=== PATIENT | male | born 1985 | race Caucasian/White ===

== ENCOUNTER 2016-10-08 15:42 | Emergency (ER) | payer BC ==
--- NOTE | 2016-10-08 16:04 | ER Document Report ---
HPI - HPI Patient complains to provider of: cut right wrist Onset: This morning Onset/Duration: Sudden Pain Level: 3 Context: 31 yo male cut right dorsal wrist with hoe while wrestling a snake. Hurts to move the wrist, worried he cut a tendon. Tetanus not current. Associated Symptoms: None Exacerbated by: Movement Relieved by: Denies Similar symptoms previously: No Recently seen / treated by doctor: No - ROS ROS below otherwise negative: Yes Systems Reviewed and Negative: Yes All other systems reviewed and negative - DERM Skin Color: Normal Past Medical History - General Information source: Patient - Social History Smoking Status: Never Smoker Frequency of alcohol use: None Drug Abuse: None Lives with: Family Family History: Reviewed & Not Pertinent Patient has suicidal ideation: No Patient has homicidal ideation: No - Medical History Medical History: Negative Renal/ Medical History: Denies: Hx Peritoneal Dialysis Surgical Hx: Negative Vertical Provider Document - CONSTITUTIONAL Agree With Documented VS: Yes Exam Limitations: No Limitations - INFECTION CONTROL TRAVEL OUTSIDE OF THE [place] IN LAST 30 DAYS: No - HEENT HEENT: Normocephalic - NECK Neck: Supple - RESPIRATORY O2 Sat by Pulse Oximetry: 97 - MUSCULOSKELETAL/EXTREMETIES Musculoskeletal/Extremeties: FROM - Against resistant pressure he is able to flex and extend and move medial and laterally with his wrist,, Tender - 2 cm full-thickness cut distal radial right forearm, - NEURO Level of Consciousness: Awake, Alert, Appropriate Motor/Sensory: negative: No Sensory Deficit Notes: States numbness to his dorsal right hand mostly over the second and third metacarpal area - DERM Integumentary: Warm, Dry, Laceration - See above Course - Vital Signs Vital signs: Temp Pulse Resp BP Pulse Ox 98.7 F 61 16 109/74 97 10/08/16 15:53 10/08/16 15:53 10/08/16 15:53 10/08/16 15:53 10/08/16 15:53 Procedures - Immobilization Right Wrist Time completed: 18:05 Pre-Proc Neuro Vasc Exam: Other - numbness dorsal right hand 2nd, 3rd MCP mostly Performed by: PCT Post-Proc Neuro Vasc Exam: Unchanged from pre-exam Alignment checked and good: Yes - ulnar gutter with some flexion of the radial side wrist per dr. valles order Discharge - Discharge Clinical Impression: rt radial distal dorsal forearm cut, dorsal right hand parathesia Condition: Good Disposition: HOME, SELF-CARE Instructions: Temporary Splint ([facility]), Splint Precautions ([facility]), Laceration Care ([facility]), Numbness or Paresthesia ([facility]), Anti-Inflammatory Medication ([facility]) Additional Instructions: keep splint on until you see dr. gamboa wound check in 48 hours in the ER to er sooner any concerns Please complete the patient satisfaction survey if you get one, and return it.. If you do not receive a survey, then you can go to the [facility] website, [email or web address] and place your comments about your very good care. Thank you very much. It was a pleasure being your medical provider today. Prescriptions: Ibuprofen [Motrin 800 mg Tablet] 800 mg PO Q8HP PRN #30 tablet PRN Reason: Referrals: CAMERON GAMBOA DO [ACTIVE STAFF] - 10/11/16
[2016-10-08] MEDS ORDERED: LIDOCAINE 1% INJ-PF (10 MG/ML) 30 ML SDV INJ ONE (16:11)
[2016-10-08] MEDS ORDERED: LIDOCAINE 4%/TETRACAINE 0.5%/EPI 0.18% 5 ML TOPICAL SOLN TOP ONE (16:11)
[2016-10-08] MEDS ORDERED: IBUPROFEN 800 MG TABLET PO ONE (16:11)
[2016-10-08] MEDS ORDERED: ONDANSETRON 4 MG TAB.RAPDIS PO ONE (16:11)
[2016-10-08] MEDS ORDERED: TRAMADOL HCL 50 MG TABLET PO ONE (16:11)
[2016-10-08] MEDS ORDERED: DIPH/PERTUSS(ACELL)/TETANUS VAC/PF 0.5 ML SYR (>=10YO) IM ONE (16:57)
[2016-10-08 18:45] VITALS: BP 121/79
== END 2016-10-08 18:45 | disposition home or self-care (01) ==
LOC: ER 15:42
PROC: 2W3CX1Z Immobilization of Right Lower Arm using Splint (ICD-10-PCS; principal; 2016-10-08)
DX: S61.511A Laceration without foreign body of right wrist, initial encounter (principal); R20.9 Unspecified disturbances of skin sensation; W27.1XXA Contact with garden tool, initial encounter; Z23 Encounter for immunization
CPT/HCPCS: 99283; 90471; 73110; 90715; 29125; S0119; J3490 ×2

== ENCOUNTER 2016-10-12 11:25 | Day surgery (SDC) | payer BC ==
[~2016-10-12 11:25] MED LIST: BACITRACIN INJ 50,000 UNIT VIAL ONE; BUPIVACAINE HCL 0.5 % INJ/PF 30 ML SDV ONE; CEFAZOLIN 2 GM/D5W RTU 2 GM/50 ML RTUPB IV PRN; GLYCOPYRROLATE INJ 0.4 MG/2 ML VIAL ONE; LIDOCAINE 2% INJ-PF (20 MG/ML) 10 ML AMPUL ONE; METOCLOPRAMIDE HCL INJ/PF 10 MG/2 ML SDV ONE; NEOSTIGMINE METHYLSULFATE 10 MG/10 ML VIAL ONE; ONDANSETRON HCL INJ/PF 4 MG/2 ML SDV ONE; ROCURONIUM BROMIDE INJ 50 MG/5 ML VIAL IV ONE; SUCCINYLCHOLINE CHLORIDE INJ 200 MG/10 ML VIAL ONE
[2016-10-12 12:19] LABS: AMORPHOUS SEDIMENT,URINE TRACE /HPF; APPEARANCE,URINE CLOUDY; BILIRUBIN,URINE NEGATIVE (NEGATIVE); GLUCOSE, URINE NEGATIVE (NEGATIVE); KETONES,URINE NEGATIVE (NEGATIVE); LEUKOCYTE ESTERASE,URINE NEGATIVE (NEGATIVE); NITRITE,URINE NEGATIVE (NEGATIVE); PROTEIN,URINE NEGATIVE (NEGATIVE); URINE SPECIFIC GRAVITY 1.017; UROBILINOGEN,URINE NEGATIVE mg/dL (<2.0)
[2016-10-12 13:00] LABS: HEMATOCRIT 42.6 % (37.9-51.0); HEMOGLOBIN 14.7 g/dL (13.5-17.0); HGB HCT DIFFERENCE 1.5; MEAN CORPUSCULAR HEMOGLOBIN 27.8 pg (27.0-33.4); MEAN CORPUSCULAR HGB CONC 34.4 g/dL (32.0-36.0); MEAN CORPUSCULAR VOLUME 81 fl (80-97); RED BLOOD COUNT 5.29 10^6/uL (4.35-5.55); RED CELL DISTRIBUTION WIDTH 13.1 % (11.5-14.0); WHITE BLOOD COUNT 7.1 10^3/uL (4.0-10.5)
[2016-10-12 13:23] LABS: ANION GAP 10 (5-19); BLOOD UREA NITROGEN 12 mg/dL (7-20); CALCIUM 9.6 mg/dL (8.4-10.2); CARBON DIOXIDE 28 mmol/L (22-30); CHLORIDE 103 mmol/L (98-107); CREATININE RESULT 0.75 mg/dL (0.52-1.25); GLUCOSE 89 mg/dL (75-110); POTASSIUM 4.3 mmol/L (3.6-5.0); SODIUM 140.5 mmol/L (137-145)
[2016-10-12] MEDS ORDERED: FENTANYL CITRATE INJ/PF 250 MCG/5 ML AMPULE ONE (13:39)
[2016-10-12] MEDS ORDERED: ACETAMINOPHEN 100 ML IV ONE (13:39)
[2016-10-12] MEDS ORDERED: MIDAZOLAM 2 MG/2 ML INJ ONE (13:39)
[2016-10-12] MEDS ORDERED: PROPOFOL INJ 200 MG/20 ML VIAL IV ONE (13:39)
[2016-10-12] MEDS ORDERED: MORPHINE SULFATE 10 MG/ML INJ ONE (13:40)
[2016-10-12] MEDS ORDERED: PROMETHAZINE HCL INJ 25 MG/1 ML VIAL IV PRN ×2 (15:05)
[2016-10-12] MEDS ORDERED: FENTANYL CITRATE INJ/PF 100 MCG/2 ML AMPUL IV PRN ×3 (15:05)
[2016-10-12] MEDS ORDERED: MORPHINE SULFATE 10 MG/ML INJ IV PRN ×2 (15:05→16:01)
[2016-10-12] MEDS ORDERED: MEPERIDINE HCL/PF INJ 25 MG/1 ML DISP.SYRIN IV PRN (15:05)
[2016-10-12] MEDS ORDERED: DIPHENHYDRAMINE HCL 50 MG/ML VIAL IV PRN (15:05)
[2016-10-12] MEDS ORDERED: OXYCODONE-ACETAMINOPHEN 5-325 MG TABLET PO PRN ×3 (15:05→16:01)
[2016-10-12] MEDS ORDERED: DEXAMETHASONE SOD PHOS INJ 10 MG/1 ML VIAL ONE (15:56)
[2016-10-12] MEDS ORDERED: ONDANSETRON HCL INJ/PF 4 MG/2 ML SDV IV PRN (16:01)
--- NOTE | 2016-10-12 16:02 | PDOC DISCHARGE SUMMARY ---
Discharge Summary (SDC) - Discharge Final Diagnosis: Right Wrist ECRB/ECRL, radial sensory nerve laceration Date of Surgery: 10/12/16 Discharge Date: 10/12/16 Condition: Good Treatment or Instructions: Schedule Follow Up w/ Dr. Tanner Sarkar @ [facility] to be seen in 10-14 days or as scheduled [place]: [place]: [place]: Keep splint clean/dry/intact. Ice and elevate May begin finger range of motion attempting to make full fist. Stool softener of choice when on pain medication. Prescriptions: Oxycodone HCl/Acetaminophen [Percocet 5-325 mg Tablet] 1 - 2 tab PO ASDIR PRN # 45 tablet PRN Reason: Discharge Diet: As Tolerated Respiratory Treatments at Home: Deep Breathing/Coughing Discharge Activity: No Lifting Over 10 Pounds, No Lifting/Push/Pulling Report the Following to Your Physician Immediately: Fever over 101 Degrees, Unusual Bleeding, Redness, Swelling, Warmth, Increased Soreness
--- NOTE | 2016-10-12 16:11 | Operative Report ---
Operative Report DATE OF SURGERY: 10/12/16 PREOPERATIVE DIAGNOSIS: Right Wrist Laceration POSTOPERATIVE DIAGNOSIS: Right Wrist ECRB/ECRL, radial sensory nerve laceration OPERATION: Right Wrist Exploration, Repair ECRB/ECRL, radial sensory nerve laceration w/ placement of Axogen Neuroprotector SURGEON: CAMERON GAMBOA ANESTHESIA: GA COMPLICATIONS: None ESTIMATED BLOOD LOSS: Minimal PROCEDURE: Indication for above procedure: 31-year-old male who sustained a laceration from garden hoe onto his right wrist. Patient was seen at the emergency room where the area was cleansed he was started on antibiotics. Subsequently followed up at my office at which point we discussed treatment options including observation versus expiration to confirm possible damage tendons or nerves. After we discussed these options the joint decision was made to proceed with operative intervention. Procedure In Detail: Patient was seen and evaluated in the preoperative holding area. The upper extremity was initialized and marked. Patient received 2g of Ancef IV for bacterial prophylaxis. Patient was taken back to the operative room where transferred to the operative table and placed under general anesthesia. Once they were adequately anesthetized a nonsterile tourniquet was placed on the upper extremity. A surgical team debriefing was performed ensuring all instrumentation was available, the surgical procedure was discussed with possible concerns reviewed. The upper extremity was prepped with Betadine and draped in a sterile fashion. A timeout was done identifying correct patient, procedure and extremity everyone in attendance agree with this and verbalized no concerns. The extremity was exsanguinated the tourniquet was inflated to 250 mmHg. Patient's skin incision was extended proximally and distally in a S-shaped configuration. Blunt dissection was performed to the soft tissues. A peripheral vasculature was carefully coagulated with bipolar cautery. A branch of the superficial radial nerve was lacerated. There was contusion of the superficial radial nerve as well. Deep blunt dissection demonstrated complete lacerations of the ECRB and ECRL tendons with retraction proximally and distally. No disruption of the first dorsal compartment or third dorsal compartment. I then proceeded with fixation of the wrist extensors. The second dorsal compartment was released proximally but left intact distally. The ECRB/ECRL tendon stumps distally were retracted and required 45 wrist extension to expose them within the wound. Proximally the tendons were identified. The ECRB and ECRL were repaired utilizing 40 fiber loop with a cruciate configuration and then reinforced with a running epitendinous 5-0 Prolene suture. I was able to fully passively flex the wrist without tendon gapping. EPL tendon passed over the repair site and thus the EPL tendon was transposed at the third dorsal compartment radially to avoid irritation at the ECRB/ECRL repair site. The proximal and distal branches off of the superficial radial nerve that was truncated were identified. These were successfully repaired utilizing two simple 8-0 nylon sutures without tension further neurolysis of the main trunk of the superficial radial nerve and the repair branch was done to avoid tension. There wan no evidence of nerve gapping with wrist range of motion from full flexion to full extension. I then placed a Axogen 3 mm nerve protector around the main trunk of the superficial radial nerve and the repaired branch the nerve protector was cut to allow wrapping around the nerves and then secured proximally and distally with horizontal mattress using 8-0 nylon suture. The wound was then copiously irrigated with normal saline. Any peripheral vascular suture was coagulated with bipolar cautery. Skin was closed with interrupted horizontal mattress 3-0 nylon suture. 20 mL of 0.5% Marcaine without epinephrine was injected for postoperative pain control. Was dressed with Xeroform 4 x 4's and patient was placed in a volar wrist splint maintaining 30 of extension of the wrist has small thumb extension was added to further protect my nerve repair. Tourniquet was deflated. Patient had good peripheral perfusion. Sponge counts, instrument counts, needle counts counts were correct. Patient was then awoken from anesthesia. Transferred from the operating room table to the operating room stretcher. There was no intraoperative complications patient tolerated procedure well stable to PACU. Postoperative plan: Patient will follow-up in the office in 10-14 days. He will be set up for occupational therapy prior to this to be fitted for a thermoplastic splint as per zone VII wrist extensor protocol.
[2016-10-12] MEDS ORDERED: OXYCODONE-ACETAMINOPHEN 5-325 MG TABLET ONE (17:05)
[2016-10-12 18:10] VITALS: BP 108/73
--- NOTE | 2016-10-12 22:16 | EKG REPORT ---
SEVERITY:- NORMAL ECG - SINUS RHYTHM : Confirmed by: Octavio Meade 12-Oct-2016 22:15:37
== END 2016-10-12 18:00 | disposition home or self-care (01) ==
LOC: OROUT 11:25
PROVIDERS: ATTEND Orthopaedic Surgery
PROC: 3E0T3GC Introduction of Other Therapeutic Substance into Peripheral Nerves and Plexi, Percutaneous Approach (ICD-10-PCS; 2016-10-12)
PROC: 0LQ60ZZ Repair Left Lower Arm and Wrist Tendon, Open Approach (ICD-10-PCS; principal; 2016-10-12 13:30)
DX: S66.821A Laceration of other specified muscles, fascia and tendons at wrist and hand level, right hand, initial encounter (principal); S64.21XA Injury of radial nerve at wrist and hand level of right arm, initial encounter; S61.511A Laceration without foreign body of right wrist, initial encounter; W27.8XXA Contact with other nonpowered hand tool, initial encounter; G56.31 Lesion of radial nerve, right upper limb; F17.290 Nicotine dependence, other tobacco product, uncomplicated
CPT/HCPCS: 36415; 85027; 80048; 81001; 71010; 93005; 93010; 25270 ×2; 64999; J2250; J3490 ×2; J3010; J2765; J2270; J0330; J2405; J2704; J1100; J0690; J0131; 1810

== ENCOUNTER 2019-08-08 09:16 | Emergency (ER) | payer BC, OTHER ==
[2019-08-08] MEDS ORDERED: ONDANSETRON 4 MG TAB.RAPDIS PO ONE (09:46)
[2019-08-08] MEDS ORDERED: ACETAMINOPHEN 325 MG TABLET PO ONE (09:47)
--- NOTE | 2019-08-08 09:47 | ER Document Report ---
ED Medical Screen (RME) - General Chief Complaint: Fever Stated Complaint: FEVER/VOMITING Time Seen by Provider: 08/08/19 09:43 Notes: 33-year-old male presents with fever, cough, nausea/vomiting for the past 3 days. Patient states he has been unable to keep anything down the past 3 days. Abdomen soft nontender. Regular rate and rhythm. Lungs clear to auscultation bilaterally. I have greeted and performed a rapid initial assessment of this patient. A comprehensive ED assessment and evaluation of the patient, analysis of test results and completion of the medical decision making process with be conducted by additional ED providers. TRAVEL OUTSIDE OF THE [place] IN LAST 30 DAYS: No - Related Data Allergies/Adverse Reactions: No Known Allergies Allergy (Verified 08/08/19 09:38) Past Medical History - Social History Chew tobacco use (# tins/day): Yes Frequency of alcohol use: None Drug Abuse: None - Past Medical History Cardiac Medical History: Denies: Hx Coronary Artery Disease, Hx Heart Attack, Hx Hypertension Pulmonary Medical History: Reports: Hx Asthma - as a child Denies: Hx Bronchitis, Hx COPD, Hx Pneumonia Neurological Medical History: Denies: Hx Cerebrovascular Accident, Hx Seizures Renal/ Medical History: Denies: Hx Peritoneal Dialysis Musculoskeltal Medical History: Denies Hx Arthritis - Immunizations Hx Diphtheria, Pertussis, Tetanus Vaccination: Yes Physical Exam - Vital signs Vitals: Temp Pulse Resp BP Pulse Ox 100.8 F H 82 20 148/86 H 97 08/08/19 09:20 08/08/19 09:20 08/08/19 09:20 08/08/19 09:20 08/08/19 09:20 Course - Vital Signs Vital signs: Temp Pulse Resp BP Pulse Ox 100.8 F H 82 20 148/86 H 97 08/08/19 09:20 08/08/19 09:20 08/08/19 09:20 08/08/19 09:20 08/08/19 09:20
[2019-08-08 10:22] LABS: APPEARANCE,URINE CLEAR; BILIRUBIN,URINE NEGATIVE (NEGATIVE); COLOR,URINE YELLOW; GLUCOSE, URINE NEGATIVE (NEGATIVE); KETONES,URINE TRACE mg/dL (NEGATIVE); PROTEIN,URINE 30 mg/dL (NEGATIVE); URINE SPECIFIC GRAVITY 1.026; UROBILINOGEN,URINE NEGATIVE mg/dL (<2.0)
--- NOTE | 2019-08-08 10:30 | RADIOLOGY REPORT (SQ) ---
EXAM DESCRIPTION: CHEST 2 VIEWS COMPLETED DATE/TIME: 08/08/2019 10:16 am REASON FOR STUDY: cough, fever COMPARISON: None. EXAM PARAMETERS: NUMBER OF VIEWS: two views TECHNIQUE: Digital Frontal and Lateral radiographic views of the chest acquired. RADIATION DOSE: NA LIMITATIONS: none FINDINGS: LUNGS AND PLEURA: No opacities, masses or pneumothorax. No pleural effusion. MEDIASTINUM AND HILAR STRUCTURES: No masses or contour abnormalities. HEART AND VASCULAR STRUCTURES: Heart normal size. No evidence for failure. BONES: No acute findings. HARDWARE: None in the chest. OTHER: No other significant finding. IMPRESSION: NO ACUTE RADIOGRAPHIC FINDING IN THE CHEST. TECHNICAL DOCUMENTATION: JOB ID: [id number] 2010 [employer]- All Rights Reserved Reading location - IP/workstation name: [email or web address]
[2019-08-08 10:38] LABS: ABSOLUTE LYMPHOCYTES (AUTO) 0.9 10^3/uL (0.5-4.7); ABSOLUTE MONOCYTES (AUTO) 0.8 10^3/uL (0.1-1.4); ABSOLUTE NEUT (AUTO) 2.8 10^3/uL (1.7-8.2); BASOPHILS % (AUTO) 0.7 % (0-2); EOSINOPHILS % (AUTO) 0.1 % (0-6); HEMATOCRIT 44.6 % (37.9-51.0); HEMOGLOBIN 15.9 g/dL (13.5-17.0); LYMPHOCYTES % (AUTO) 18.9 % (13-45); MEAN CORPUSCULAR HEMOGLOBIN 28.6 pg (27.0-33.4); MEAN CORPUSCULAR HGB CONC 35.6 g/dL (32.0-36.0); MEAN CORPUSCULAR VOLUME 80 fl (80-97); MONOCYTES % (AUTO) 17.2 % (3-13); PLATELET COUNT 178 10^3/uL (150-450); RED BLOOD COUNT 5.56 10^6/uL (4.35-5.55); RED CELL DISTRIBUTION WIDTH 12.8 % (11.5-14.0); SEGMENTED NEUTROPHILS % (AUTO) 63.1 % (42-78); TOTAL CELLS COUNTED % (AUTO) 100 %; WHITE BLOOD COUNT 4.5 10^3/uL (4.0-10.5)
[2019-08-08 10:44] LABS: A TYPE INFLUENZA AG NEGATIVE (NEGATIVE); B INFLUENZA AG POSITIVE (NEGATIVE)
[2019-08-08 11:01] LABS: ALBUMIN 4.2 g/dL (3.5-5.0); ALKALINE PHOSPHATASE 57 U/L (38-126); ANION GAP 12 (5-19); ASPARTATE AMINO TRANSFERASE 40 U/L (17-59); BILIRUBIN,TOTAL 0.3 mg/dL (0.2-1.3); BLOOD UREA NITROGEN 14 mg/dL (7-20); CALCIUM 9.4 mg/dL (8.4-10.2); CARBON DIOXIDE 25 mmol/L (22-30); CHLORIDE 96 mmol/L (98-107); GLUCOSE 105 mg/dL (75-110); POTASSIUM 4.4 mmol/L (3.6-5.0)
--- NOTE | 2019-08-08 11:17 | ER Document Report ---
ED Fever - General Chief Complaint: Fever Stated Complaint: FEVER/VOMITING Time Seen by Provider: 08/08/19 09:43 Mode of Arrival: Ambulatory Information source: Patient TRAVEL OUTSIDE OF THE [place] IN LAST 30 DAYS: No - HPI Notes: Patient presents with fever and nausea x3 to 4 days. Also has been having sweats. He denies any abdominal pain. No throat pain. He said he had a mild cough. His symptoms have been relatively constant. They have been mild to moderate. They are worse with exertion and better with rest. They do radiate throughout his body. - Related Data Allergies/Adverse Reactions: No Known Allergies Allergy (Verified 08/08/19 09:38) Past Medical History - General Information source: Patient - Social History Smoking Status: Former Smoker Chew tobacco use (# tins/day): Yes Frequency of alcohol use: None Drug Abuse: None Family History: Reviewed & Not Pertinent Patient has suicidal ideation: No Patient has homicidal ideation: No - Past Medical History Cardiac Medical History: Denies: Hx Coronary Artery Disease, Hx Heart Attack, Hx Hypertension Pulmonary Medical History: Reports: Hx Asthma - as a child Denies: Hx Bronchitis, Hx COPD, Hx Pneumonia Neurological Medical History: Denies: Hx Cerebrovascular Accident, Hx Seizures Renal/ Medical History: Denies: Hx Peritoneal Dialysis Musculoskeletal Medical History: Denies Hx Arthritis - Immunizations Hx Diphtheria, Pertussis, Tetanus Vaccination: Yes Review of Systems - Review of Systems Constitutional: Chills, Fever, Malaise, Recent illness Cardiovascular: denies: Chest pain, Palpitations Respiratory: Cough. denies: Short of breath -: Yes All other systems reviewed and negative Physical Exam - Vital signs Vitals: Temp Pulse Resp BP Pulse Ox 100.8 F H 82 20 148/86 H 97 08/08/19 09:20 08/08/19 09:20 08/08/19 09:20 08/08/19 09:20 08/08/19 09:20 Interpretation: Febrile - General General appearance: Appears well, Alert - HEENT Head: Normocephalic, Atraumatic Eyes: Normal Pupils: PERRL - Respiratory Respiratory status: No respiratory distress Chest status: Nontender Breath sounds: Normal Chest palpation: Normal - Cardiovascular Rhythm: Regular Heart sounds: Normal auscultation Murmur: No - Abdominal Inspection: Normal Distension: No distension Bowel sounds: Normal Tenderness: Nontender Organomegaly: No organomegaly - Back Back: Normal, Nontender - Extremities General upper extremity: Normal inspection, Nontender, Normal color, Normal ROM, Normal temperature General lower extremity: Normal inspection, Nontender, Normal color, Normal ROM, Normal temperature, Normal weight bearing. No: Rochelle's sign - Neurological Neuro grossly intact: Yes Cognition: Normal Orientation: AAOx4 [place] Coma Scale Eye Opening: Spontaneous [place] Coma Scale Verbal: Oriented [place] Coma Scale Motor: Obeys Commands [place] Coma Scale Total: 15 Speech: Normal Motor strength normal: LUE, RUE, LLE, RLE Sensory: Normal - Psychological Associated symptoms: Normal affect, Normal mood - Skin Skin Temperature: Warm Skin Moisture: Moist Skin Color: Normal Course - Vital Signs Vital signs: Temp Pulse Resp BP Pulse Ox 100.8 F H 82 20 148/86 H 97 08/08/19 09:20 08/08/19 09:20 08/08/19 09:20 08/08/19 09:20 08/08/19 09:20 - Laboratory Result Diagrams: 08/08/19 10:15 08/08/19 10:15 Laboratory results interpreted by me: 08/08/19 08/08/19 08/08/19 10:04 10:15 10:15 RBC 5.56 H [place] % (Auto) 17.2 H Sodium 132.5 L Chloride 96 L Urine Protein 30 H Urine Ketones TRACE H Discharge - Discharge Clinical Impression: Influenza B Condition: Stable Disposition: HOME, SELF-CARE Instructions: Influenza ([facility]) [id number], Fever ([facility]), Acetaminophen Prescriptions: Ondansetron [Zofran Odt 4 mg Tablet] 1 - 2 tab PO Q4H PRN #15 tab.rapdis PRN Reason: For Nausea/Vomiting
[2019-08-08 11:44] VITALS: BP 111/97
== END 2019-08-08 11:43 | disposition home or self-care (01) ==
LOC: ER 09:16
DX: J10.1 Influenza due to other identified influenza virus with other respiratory manifestations (principal); R50.9 Fever, unspecified; R05 Cough; R11.2 Nausea with vomiting, unspecified; R53.81 Other malaise; Z87.891 Personal history of nicotine dependence
CPT/HCPCS: 36415; 87070; 87880; 83690; 85025; 80053; 81001; 87804; 71046; S0119; 99284